=== PATIENT | female | born 1960 | race Caucasian/White ===

== ENCOUNTER → 2022-08-07 12:00 | Outpatient (CLI) | payer MEDICARE, SELFPAY | PROVIDERS: PCP Family Medicine; Visit Provider Podiatrist | DX: L57.0 Actinic keratosis (principal) | CPT/HCPCS: 87102; 87206; 87220; 88304; 88312 ==

== ENCOUNTER 2023-03-30 20:37 | Observation (INO) | payer MEDICARE, BC, SELFPAY ==
[2023-03-30 21:00] VITALS: PULSE 90
[2023-03-30 21:02] VITALS: BP 121/80; PULSE 96; O2SAT 90; BMI 36.8
--- NOTE | 2023-03-30 21:42 | EXP.HP ---
History of Present Illness *Admission Date: 03/30/23 *Reason for visit:: SOB and intermittent CP *History of present illness: This is a 62-year-old obese female with past medical history of COPD on 2 L of home, presented as a referral from [facility]. Patient is complaining of shortness of breath, with intermittent chest pain, more on the left and back side. Patient also being having cough. Initially went to the ER, and found to be hypoxic on 81% on room air,. Patient was tested positive for flu type A. During ER work-up found to have elevated troponin. Referral initiated to this facility for cardiac evaluation. Admitted for further work-up and treatment. [facility] Disclaimer: The information contained in this section may have been updated after the patient was seen, as this information can be updated by other users. Medical History Alcoholism delivery delivered Onychoincurvatum Surgical History H/O tubal ligation Family History Father Cancer Coronary artery disease Alcoholism Mother Coronary artery disease Heart attack Hypertension Hyperlipidemia Sister Hypertension Social History Smoking Status: Former smoker years smoked: 50 how long ago did patient quit smokin years quit status: has quit before alcohol intake: former substance use type: denies use current occupational status: disabled Travel in the last 8 weeks: None Review of Systems Review of Systems Review of systems:: pertinent systems reviewed and negative unless documented below Meds Home Medications and Allergies Home Medications Medication Instructions Recorded Confirmed Type albuterol sulfate 90 mcg/actuation 2 inh inhalation QIDP PRN 03/31/23 03/31/23 History aerosol inhaler Shortness Of Breath ipratropium 0.5 mg-albuterol 3 mg 3 ml inhalation QIDP PRN Shortness 03/31/23 03/31/23 History (2.5 mg base)/3 mL nebulization Of Breath soln ketoconazole 2 % topical cream 1 applic topical BID Infection 03/31/23 03/31/23 History New Prescriptions to Start Prescriptions: Allergies Allergy/AdvReac Type Severity Reaction Status Date / Time Penicillins Allergy Unknown Verified 02/12/23 10:18 Exam Data for Last 24 hours I & O for Last 24 hours: Intake & Output 03/27/23 03/28/23 03/29/23 03/30/23 23:59 23:59 23:59 23:59 Weight 97.182 kg Constitutional Constitutional: mild distress and cooperative *Routine HEENT Exam Head: Present normocephalic and atraumatic Eye: Present EOMI, PERRL and normal accommodation ENT: Present mucous membranes moist *Routine Neck Exam Neck: Present supple, full ROM and trachea midline *Routine Respiratory Exam Respiratory: Present decreased breath sounds, respiratory distress, wheezes and symmetric chest movement; Absent able to speak in complete sentences *Routine Cardiovascular Exam Cardiovascular: Present RRR, Normal S1 and Normal S2 *Routine Abdominal Exam Abdominal: Present soft and normoactive bowel sounds; Absent organomegaly *Routine Rectal Exam Rectal:: other *Routine Genitalia Exam Genitalia:: other *Routine Extremities Exam Extremities: Present full ROM, pulses intact and normal capillary refill *Routine Skin Exam Skin: Present intact, dry and warm *Routine Neurological Exam Neurological: Present alert, oriented X3, normal reflexes, moving all extremities, normal tone and normal speech Routine Psychiatric Exam Psychiatric: Present cooperative, good insight and good judgment H&P: Result Imaging and Cardiology EKG: Status: image reviewed by me and Preliminary report Assessment and Plan *Assessment and plan (1) Acute respiratory failure with hypoxia: Status: Acute Category: Medical Code(s): J96.01 - Acute re
[2023-03-30 22:00] VITALS: BP 138/92; PULSE 93
--- NOTE | 2023-03-30 22:08 | PC.NURSE ---
Patient arrived to floor by stretcher at 20:37.
[2023-03-30 22:36] LABS: MANUAL DIFFERENTIAL MANUAL DIFFERENTIAL (MANUAL DIFF)
[2023-03-30 22:49] LABS: Basophils # 0.1 K/mm3 (0-0.2); Basophils % 0.4 % (0.1-2.0); Eosinophils % 0.2 % (0.1-12.0); Hematocrit 48.6 % (37.0-47.0); Hemoglobin 14.8 g/dL (12.2-16.2); Lymphocytes # 0.7 K/mm3 (0.7-4.5); Lymphocytes % 5.9 % (10-50); Mean Corpuscular HGB Conc 30.5 g/dL (31.8-35.4); Mean Corpuscular Hemoglobin 26.8 pg (27.0-31.2); Mean Corpuscular Volume 87.7 fl (81-99); Mean Platelet Volume 8.4 fl (7.4-10.4); Monocytes # 0.1 K/mm3 (0.1-1.0); Monocytes % 1.1 % (1.7-9.3); Neutrophils # 10.9 K/mm3 (1.8-7.8); Neutrophils % 92.3 % (37.0-80.0); Platelet Count 413 K/mm3 (142-424); Red Blood Count 5.54 M/mm3 (4.20-5.40); Red Cell Distribution Width 13.5 % (11.5-17.5); White Blood Count 11.8 K/mm3 (4.8-10.8)
[2023-03-30 22:55] LABS: Lactic Acid 1.3 mmol/L (0.7-2.1)
[2023-03-30 22:56] LABS: Alanine Aminotransferase 20 U/L (12-78); Albumin Level 4.5 g/dl (3.5-5.0); Albumin/Globulin Ratio 1.3 (1.1-1.8); Alkaline Phosphatase 125 U/L (38-126); Anion Gap 15.1 mEq/L (5-15); Aspartate Amino Transferase 24 U/L (14-36); Bilirubin,Total 0.4 mg/dl (0.2-1.3); Blood Urea Nitrogen 10 mg/dl (7-17); Calcium 9.3 mg/dl (8.4-10.2); Carbon Dioxide 28 mmol/L (22.0-30.0); Chloride 100 mmol/L (98-107); Creatinine Clearance Estimated 87 mL/min (50-200); Estimated Glomerular Filt Rate 101 ml/min (>60); GFR (African American) 122 ML/MIN (>60); Globulin 3.4 g/dL (1.3-3.2); Glucose 134 mg/dl (74-100); Potassium 5.1 mmoL/L (3.5-5.1); Sodium 138 mmol/L (136-145); Total Protein,Serum 7.9 g/dl (6.3-8.2)
[2023-03-30 23:01] LABS: INR 1.04 (0.9-1.1); Prothrombin Time 11.2 seconds (10.1-12.5)
[2023-03-30 23:08] LABS: D-Dimer 0.96 ug/mL (0.0-0.5); Troponin I 0.13 ng/ml (0.00-0.034)
[2023-03-30 23:10] VITALS: PULSE 88
[2023-03-30 23:11] VITALS: PULSE 89
[2023-03-30 23:28] LABS: Hypochromasia 2+; Lymphocytes % 5 % (10-50); Neutrophils % 95 % (42-76); Platelet Estimate Normal; Total Cells Counted 100
[2023-03-31] VITALS (17 sets, daily range): BP systolic 107–135; BP diastolic 59–84; PULSE 64–115; RESP 8–33; TEMP 36.1–37; O2SAT 88–100; BMI 36.6
--- NOTE | 2023-03-31 01:38 | PC.NURSE ---
@ 0115 THIS PT REMAINS VERY ANXIOUS, TALKATIVE, AND UNABLE TO RELAX AND OXYGENATE PROPERLY. THIS RN NOTIFIED HEALTH INFORMATION SYSTEMS TECHNICIAN; SEE NEW ORDERS @ 0130 THIS RN IS AT BEDSIDE EDUCATING PATIENT ON NEW MEDICATION, ATIVAN 1MG, AND HOW IT WILL HELP WITH THIS PT'S ANXIETY AND WILL HELP HER SHORTNESS OF AIR. AT THIS TIME PT'S DAUGHTER KEPT INTERFERING WITH THIS RN'S AND PT'S CONVERSATION ON HER CONDITION AND ANXIETY AND THIS RN HAD TO ASK THE DAUGHTER TO PLEASE QUIT INTERFERING AND LOUDLY TALKING OVER THIS RN WHILE TRYING TO EDUCATE PATIENT ON HER CONDITION. DAUGHTER INFORMED THIS RN THAT PT HAS BEEN DIAGNOSED PARANOID SCHIZOPHRENIA; PT IS VERY CONCERNED AND ANXIOUS ABOUT BECOMING ADDICTED TO MEDICATIONS AND OXYGEN.
--- NOTE | 2023-03-31 02:21 | PC.NURSE ---
@ 0156 PT IS HAVING INCREASED SOA AND WORKING HARDER TO BREATHE; RT NOTIFIED AND WILL PLACE PT ON BIPAP AT THIS TIME FOR MORE OXYGEN SUPPORT
--- NOTE | 2023-03-31 06:31 | XR_ITS ---
PROCEDURE INFORMATION: Exam: XR Chest Exam date and time: 03/31/2023 8:26 AM Age: 62 years old Clinical indication: Shortness of breath; Additional info: Hypoxia TECHNIQUE: Imaging protocol: Radiologic exam of the chest. Views: 1 view. COMPARISON: No relevant prior studies available. FINDINGS: Lungs: Hypoinflation. Poorly characterized density overlying the right lung base, which can be better assessed with PA and lateral chest radiographs. Pleural spaces: No pleural effusion. Heart/Mediastinum: Epicardial fat, without cardiomegaly. Bones/joints: Degenerative change. IMPRESSION: Poorly characterized density overlying the right lung base, which can be better assessed with PA and lateral chest radiographs.
[2023-03-31 07:28] LABS: Basophils % 0.2 % (0.1-2.0); Eosinophils % 0.2 % (0.1-12.0); Hematocrit 47.6 % (37.0-47.0); Hemoglobin 14.3 g/dL (12.2-16.2); Lymphocytes % 10.9 % (10-50); Mean Corpuscular HGB Conc 30.1 g/dL (31.8-35.4); Mean Corpuscular Hemoglobin 26.6 pg (27.0-31.2); Mean Corpuscular Volume 88.2 fl (81-99); Mean Platelet Volume 8.1 fl (7.4-10.4); Monocytes # 0.3 K/mm3 (0.1-1.0); Neutrophils # 7.9 K/mm3 (1.8-7.8); Neutrophils % 85.6 % (37.0-80.0); Platelet Count 370 K/mm3 (142-424); Red Cell Distribution Width 13.4 % (11.5-17.5); White Blood Count 9.3 K/mm3 (4.8-10.8)
[2023-03-31 07:33] LABS: MANUAL DIFFERENTIAL MANUAL DIFFERENTIAL (MANUAL DIFF)
[2023-03-31 07:39] LABS: Alanine Aminotransferase 18 U/L (12-78); Albumin Level 4.2 g/dl (3.5-5.0); Albumin/Globulin Ratio 1.1 (1.1-1.8); Alkaline Phosphatase 98 U/L (38-126); Anion Gap 10.9 mEq/L (5-15); Aspartate Amino Transferase 23 U/L (14-36); Bilirubin,Total 0.3 mg/dl (0.2-1.3); Blood Urea Nitrogen 16 mg/dl (7-17); Calcium 8.8 mg/dl (8.4-10.2); Carbon Dioxide 30 mmol/L (22.0-30.0); Chloride 102 mmol/L (98-107); Chol/HDL Ratio 4.1 (1-3.5); Cholesterol 171 mg/dl (140-200); Creatinine Clearance Estimated 87 mL/min (50-200); Estimated Glomerular Filt Rate 101 ml/min (>60); GFR (African American) 122 ML/MIN (>60); Globulin 3.7 g/dL (1.3-3.2); Glucose 125 mg/dl (74-100); HDL Cholesterol 42 mg/dl (40-60); Magnesium 2.1 mg/dl (1.6-2.3); Potassium 4.9 mmoL/L (3.5-5.1); Sodium 138 mmol/L (136-145); Total Protein,Serum 7.9 g/dl (6.3-8.2); Triglycerides 61 mg/dl (30-150); VLDL Cholesterol 12 mg/dL (0-40)
[2023-03-31 07:49] LABS: Direct LDL Cholesterol 88.68 mg/dL (100-129)
[2023-03-31 07:57] LABS: ABG Base Excess -2.6 mmol/L (-2.4-2.3); ABG HCO3 22.4 mmhg (22.0-26.0); ABG Oxygen Saturation 97 % (90-100); ABG PCO2 38.3 mmhg (35.0-45.0); ABG PH 7.39 mmol/L (7.35-7.45); ABG PO2 89.2 mmhg (80-100); ABG TCO2 23.6 mmhg (23-27)
[2023-03-31 08:24] LABS: Lymphocytes % 13 % (10-50); Monocytes % 1 % (2-9); Neutrophils % 86 % (42-76); Platelet Estimate Normal; RBC Morphology Normal; Total Cells Counted 100
[2023-03-31 08:55] LABS: Bordetella Pertussis Not Detected (NotDetected); Chlamydophila Pneumoniae, PCR Not Detected (NotDetected); Coronavirus 19, PCR Not Detected (NotDetected); Coronavirus 229E Not Detected (NotDetected); Coronavirus NL63 Not Detected (NotDetected); Coronavirus OC43 Not Detected (NotDetected); Coronovirus HKU1,PCR Not Detected (NotDetected); Human Metapneumovirus Not Detected (NotDetected); Influenza A, PCR Not Detected (NotDetected); Influenza AH1, 2009 Not Detected (NotDetected); Influenza AH1, PCR Not Detected (NotDetected); Influenza AH3,PCR Not Detected (NotDetected); Influenza B, PCR Not Detected (NotDetected); Mycoplasma Pneumoniae, PCR Not Detected (NotDetected); Parainfluenza 1, PCR Not Detected (NotDetected); Parainfluenza 2, PCR Not Detected (NotDetected); Parainfluenza 3, PCR Not Detected (NotDetected); Parainfluenza 4, PCR Not Detected (NotDetected); Respiratory Syncytial Virus Not Detected (NotDetected)
[2023-03-31 08:57] LABS: Adenovirus,PCR Not Detected (NotDetected)
--- NOTE | 2023-03-31 10:57 | HMH.PHAINT1 ---
Pharmacy Intervention Comments: MEDICATION RECONCILIATION COMPLETE USING LIST FROM MOST RECENT PODIATRY OFFICE VISIT AND EXTERNAL PHARMACY FILL HISTORY.
[2023-03-31 11:08] LABS: Rhinovirus/Enterovirus Detected (NotDetected)
[2023-03-31 13:00] LABS: Coronavirus 19, PCR Not Detected (NotDetected); Influenza A, PCR Not Detected (NotDetected); Influenza B, PCR Not Detected (NotDetected)
[2023-03-31 13:06] LABS: Troponin I 0.08 ng/ml (0.00-0.034)
--- NOTE | 2023-03-31 17:53 | EXP.ACUTE.PN ---
Subjective *Date: 03/31/23 *Time: 17:53 Interval history: Patient states she feels a little bit better this morning. Tolerating 4 L nasal cannula oxygen. Denies any chest pain, nausea, vomiting, diarrhea. Repeat panel obtained this morning showing positive entero-/rhinovirus. Repeat rapid COVID/flu A and B PCR pending given result being different from outside hospital as result. Afebrile. Medical Exam Vital signs and Labs for Last 24 Hours: Vital Signs Temp Pulse Pulse Pulse Resp BP Pulse Ox 03/31/23 15:23 98.6 F 92 H 18 118/68 100 03/31/23 12:00 100 H 03/31/23 14:58 03/31/23 12:00 109 H 33 H 135/70 92 L 03/31/23 11:55 105 H 03/31/23 11:55 115 H 03/31/23 11:55 92 L 03/31/23 08:00 75 03/31/23 11:17 97.9 F 03/31/23 10:00 88 27 H 116/70 97 03/31/23 13:00 03/31/23 10:43 03/31/23 09:59 88 03/31/23 09:59 88 03/31/23 09:59 92 L 03/31/23 08:00 100 03/31/23 09:00 03/31/23 08:00 92 H 26 H 113/69 100 03/31/23 07:48 97.0 F L 03/31/23 07:00 03/31/23 06:00 67 107/77 L 96 03/31/23 04:00 80 116/84 98 03/31/23 02:00 86 111/59 L 88 L 03/31/23 00:00 88 111/75 91 L 03/30/23 22:00 93 H 138/92 H 03/30/23 21:02 96 H 121/80 90 L 03/31/23 05:00 03/31/23 07:10 64 03/31/23 07:10 67 03/31/23 07:10 03/31/23 07:10 96 03/31/23 04:00 03/31/23 04:00 80 03/31/23 00:00 90 03/30/23 21:00 90 03/31/23 03:00 03/31/23 04:00 97.7 F 03/31/23 02:24 03/31/23 01:00 03/30/23 23:00 03/30/23 20:36 03/31/23 00:00 97.5 F L 03/30/23 23:12 03/30/23 23:11 89 03/30/23 23:10 88 O2 Del Method O2 Flow Rate FiO2 03/31/23 15:23 Nasal Cannula 4 03/31/23 12:00 03/31/23 14:58 Nasal Cannula 03/31/23 12:00 Nasal Cannula 03/31/23 11:55 03/31/23 11:55 03/31/23 11:55 Nasal Cannula 4 03/31/23 08:00 03/31/23 11:17 03/31/23 10:00 Nasal Cannula 03/31/23 13:00 Nasal Cannula 03/31/23 10:43 Nasal Cannula 03/31/23 09:59 03/31/23 09:59 03/31/23 09:59 Nasal Cannula 4 03/31/23 08:00 BiPAP 03/31/23 09:00 BiPAP 03/31/23 08:00 BiPAP 03/31/23 07:48 03/31/23 07:00 BiPAP 03/31/23 06:00 03/31/23 04:00 03/31/23 02:00 03/31/23 00:00 03/30/23 22:00 03/30/23 21:02 BiPAP 03/31/23 05:00 BiPAP 03/31/23 07:10 03/31/23 07:10 03/31/23 07:10 50 03/31/23 07:10 BiPAP 50 03/31/23 04:00 BiPAP 03/31/23 04:00 03/31/23 00:00 03/30/23 21:00 03/31/23 03:00 BiPAP 03/31/23 04:00 03/31/23 02:24 50 03/31/23 01:00 Venturi Mask 03/30/23 23:00 Venturi Mask 03/30/23 20:36 Venturi Mask 50 03/31/23 00:00 03/30/23 23:12 Venturi Mask 15 50 03/30/23 23:11 03/30/23 23:10 Intake and Output 03/31/23 03/31/23 03/31/23 07:59 15:59 23:59 Intake Total 0 / 360 360 / 360 Output Total 500 / 500 0 / 500 0 / 500 Balance -500 / -140 360 / -140 0 / -140 Intake: Intake, Oral Amount 0 / 360 360 / 360 Output: Output, Urine Amount 500 / 500 0 / 500 0 / 500 Other: Number of Unmeasured Voids 0 0 0 Weight 97.182 kg Patient Weight 03/31/23 23:59 Weight 97.182 kg Laboratory Results - last 24 hr 03/30/23 22:10: WBC 11.8 H, RBC 5.54 H, Hgb 14.8, Hct 48.6 H, MCV 87.7, MCH 26.8 L, MCHC 30.5 L, RDW 13.5, Plt Count 413, MPV 8.4, Neut % (Auto) 92.3 H, Lymph % (Auto) 5.9 L, Pike % (Auto) 1.1 L, Eos % (Auto) 0.2, Baso % (Auto) 0.4, Neut # (Auto) 10.9 H, Lymph # (Auto) 0.7, Pike # (Auto) 0.1, Eos # (Auto) 0.0, Baso # (Auto) 0.1, Total Counted 100, Neutrophils % (Manual) 95 H, Lymphocytes % (Manual) 5 L, Platelet Estimate Normal, Hypochromasia 2+, PT 11.2, INR 1.04, D-Dimer 0.96 H, Sodium 13
--- NOTE | 2023-03-31 21:35 | ECG_ITS ---
APPROVED REPORT Exam: Resting ECG HR:60 bpm ECG Measurements Heart Rate 60 AXES ID 161 P 72 QRSd 89 QRS 97 QT 391 T 81 QTc 391 Conclusion SINUS RHYTHM WITH OCCASIONAL SUPRAVENTRICULAR PREMATURE COMPLEXES BORDERLINE RIGHT AXIS DEVIATION [QRS AXIS > 90] MINIMAL ST DEPRESSION [0.025+ mV ST DEPRESSION] BORDERLINE ECG UNCONFIRMED REPORT Electronically signed by : Dakota Mckenzie MD 04/02/2023 20:06:02
[2023-04-01] VITALS (14 sets, daily range): BP systolic 104–123; BP diastolic 55–80; PULSE 70–101; RESP 18–22; TEMP 36.5–37.6; O2SAT 93–98; BMI 37.2
--- NOTE | 2023-04-01 05:46 | PC.NURSE ---
no events through the night, pt remains on 3l/nc, nsr on monitor, audible wheezing at times
--- NOTE | 2023-04-01 06:00 | ECG_ITS ---
APPROVED REPORT Exam: Resting ECG HR:77 bpm ECG Measurements Heart Rate 77 AXES ID 145 P 52 QRSd 83 QRS 19 QT 390 T 41 QTc 422 Conclusion SINUS RHYTHM LOW QRS VOLTAGE IN PRECORDIAL LEADS [QRS DEFLECTION < 1.0 mV IN CHEST LEADS] BORDERLINE ECG UNCONFIRMED REPORT Electronically signed by : Dakota Mckenzie MD 04/02/2023 20:05:12
[2023-04-01 06:30] LABS: Basophils # 0.1 K/mm3 (0-0.2); Basophils % 0.5 % (0.1-2.0); Eosinophils # 0.2 K/mm3 (0.0-0.4); Eosinophils % 1.3 % (0.1-12.0); Hematocrit 45.5 % (37.0-47.0); Hemoglobin 13.8 g/dL (12.2-16.2); Lymphocytes # 3.2 K/mm3 (0.7-4.5); Lymphocytes % 25.2 % (10-50); Mean Corpuscular HGB Conc 30.4 g/dL (31.8-35.4); Mean Corpuscular Hemoglobin 26.8 pg (27.0-31.2); Mean Corpuscular Volume 88.3 fl (81-99); Mean Platelet Volume 8.3 fl (7.4-10.4); Monocytes # 0.8 K/mm3 (0.1-1.0); Monocytes % 6.5 % (1.7-9.3); Neutrophils # 8.4 K/mm3 (1.8-7.8); Neutrophils % 66.5 % (37.0-80.0); Platelet Count 402 K/mm3 (142-424); Red Blood Count 5.16 M/mm3 (4.20-5.40); Red Cell Distribution Width 13.5 % (11.5-17.5); White Blood Count 12.7 K/mm3 (4.8-10.8)
[2023-04-01 06:44] LABS: Alanine Aminotransferase 18 U/L (12-78); Albumin/Globulin Ratio 1.1 (1.1-1.8); Alkaline Phosphatase 91 U/L (38-126); Anion Gap 11.3 mEq/L (5-15); Aspartate Amino Transferase 25 U/L (14-36); Bilirubin,Total 0.2 mg/dl (0.2-1.3); Blood Urea Nitrogen 26 mg/dl (7-17); Calcium 8.5 mg/dl (8.4-10.2); Carbon Dioxide 31 mmol/L (22.0-30.0); Chloride 101 mmol/L (98-107); Creatinine Clearance Estimated 89 mL/min (50-200); Estimated Glomerular Filt Rate 84 ml/min (>60); GFR (African American) 102 ML/MIN (>60); Globulin 3.5 g/dL (1.3-3.2); Glucose 100 mg/dl (74-100); Potassium 4.3 mmoL/L (3.5-5.1); Sodium 139 mmol/L (136-145); Total Protein,Serum 7.5 g/dl (6.3-8.2)
--- NOTE | 2023-04-01 09:00 | CA_ITS ---
APPROVED REPORT EXAM: Comprehensive 2D, Doppler, and color-flow Echocardiogram Cooling Pan Tender: Aissatou Mercado CRT Ht: 5 ft 4 in Wt: 218lbs BSA: 2.03 BP: 118/69 mmHg Indications: Chest Pain, Shortness of Breath, NSTEMI, FLU A, HOME O2 2D Dimensions LVOT 1.79 cm (M/F) 1.5-2.5 LA Volume 25.30 mL LA Volume Index 12.20 mL/m2 (M/F) 16-34 M-Mode Dimensions RVDd 3.11 cm (0.9-2.6) LA Diam 2.94 cm (1.9-4.0) LVDd 2.86 cm (3.5-5.7) Ao Diam 3.91 cm (2.0-3.7) LVDs 1.79 cm (3.5-5.7) IVSd 1.82 cm (0.6-1.1) PWd 0.75 cm (0.6-1.1) EF (Teich) 69.10% FS 37.40% EDV (Teich) 31.10 mL TAPSE 2.94 (<1.7) ESV (Teich) 9.60 mL LV Diastology E Decel Time 150.00 (160-240 msec) E/A Ratio 0.83 MED E' 6.00 (< 7 cm/sec) MED A' 10.90 cm/s E'/MED E' Ratio 14.53 (>14) LAT E' 12.80 (<10 cm/sec) LAT A' 11.20 cm/s E/LAT E' Ratio 6.81 (>14) Aortic Valve AO Peak GR. 8.80 mmHg Mitral Valve MV A Velocity 105.00 (40-130 cm/s) E/A Ratio 0.83 MV Decel. Time 150.00 (160-240 ms) Pulmonary Valve PV Peak Velocity 125.00 (50-150 cm/s) Tricuspid Valve TR P. Velocity 259.00 cm/s RAP Estimate 10.00 mmHg RVSP 36.80 mmHg Left Ventricle The left ventricle is normal size. The left ventricular systolic function is normal. The left ventricular ejection fraction is within the normal range. There is normal left ventricular wall thickness. There is normal LV segmental wall motion. The left ventricular diastolic function is normal. LVEF is 65%. Right Ventricle The right ventricle is normal size. Atria The left atrium size is normal. The right atrium size is normal. There is no Doppler evidence of interatrial shunt. Aortic Valve The aortic valve is mildly thickened. There is no aortic valvular stenosis. No aortic regurgitation is present. Mitral Valve The mitral valve is normal in structure. No evidence of mitral valve stenosis. There is no mitral valve regurgitation noted. Tricuspid Valve Tricuspid valve leaflets are thin and pliable. Trace tricuspid regurgitation. RVSP is 15 mmHg + RA pressure. Pulmonic Valve The pulmonary valve is normal in structure. Trace pulmonic regurgitation. Great Vessels The aortic root is normal in size. The ascending aorta is normal in size. The IVC is not well-visualized. Pericardium There is no pericardial effusion. Other Information Study Quality: Fair Conclusion Normal biventricular systolic function. No significant valvular stenosis or regurgitation. Electronically signed by : Lurdes Mead MD 04/02/2023 17:40:18
--- NOTE | 2023-04-01 10:02 | EXP.PULM.CON ---
History of Present Illness History of present illness: Ms. Neely is a 62-year-old female greater than [id number] smoking the last 1 to 2 years ago with reported diagnosis of COPD using albuterol on as-needed basis at home presented with worsening respiratory distress and pulmonary was called for further evaluation and management [facility] Disclaimer: The information contained in this section may have been updated after the patient was seen, as this information can be updated by other users. Medical History (Updated 04/01/23 @ 11:46 by Abdirizak Lopez MD) Alcoholism delivery delivered COPD exacerbation Onychoincurvatum Pneumonia Surgical History H/O tubal ligation Family History Father Cancer Coronary artery disease Alcoholism Mother Coronary artery disease Heart attack Hypertension Hyperlipidemia Sister Hypertension Social History Smoking Status: Former smoker years smoked: 50 how long ago did patient quit smokin years quit status: has quit before alcohol intake: former substance use type: denies use current occupational status: disabled Travel in the last 8 weeks: None Review of Systems Constitutional Constitutional: Reports anorexia, Reports body ache(s) and Reports fatigue Eyes Eyes: Denies eye discharge, Denies dry eyes, Denies irritation and Denies itchy eyes ENT Ears, Nose, Mouth, and Throat: Denies epistaxis, Denies facial pain, Denies lip swelling and Denies throat swelling *Cardiovascular Cardiovascular: Reports dyspnea and Reports dyspnea on exertion *Respiratory Respiratory: Reports chest congestion, Reports cough, Reports dyspnea, Reports dyspnea on exertion, Denies excessive phlegm production, Denies hemoptysis, Denies pain on inspiration, Denies pain with cough and Reports wheezing *Gastrointestinal Gastrointestinal: Denies abdominal pain, Denies belching and Denies cramping *Musculoskeletal Musculoskeletal: Reports back pain, Reports myalgias and Reports other (No small joint swelling or Pain) Psychiatric Psychiatric: Denies homicidal ideation and Denies suicidal ideation Endocrine Endocrine: Reports fatigue and Denies heat intolerance Hematologic/Lymphatic Hematologic/Lymphatic: Denies easy bleeding and Denies lymphadenopathy Allergic/Immunologic Allergic/Immunologic: Denies itchy eyes, Denies lip swelling, Denies throat swelling and Reports wheezing Pulmonology Exam Inpatient Vital signs and Labs for Last 24 Hours: Temp Pulse Resp BP Pulse Ox O2 Del Method O2 Flow Rate 99.7 F H 77 22 118/69 96 Room Air 2 04/01/23 07:51 04/01/23 09:05 04/01/23 07:51 04/01/23 07:51 04/01/23 09:05 04/01/23 09:05 04/01/23 07:51 FiO2 32 03/31/23 19:00 Laboratory Results - last 24 hr 03/31/23 07:13: Troponin I 0.08 H 03/31/23 08:55: Chlamy pneumoniae PCR Not detected, Adenovirus (PCR) Not detected, B. pertussis DNA (PCR) Not detected, Coronavirus OC43 (PCR) Not detected, Coronavirus HKU1 (PCR) Not detected, Coronavirus 229E (PCR) Not detected, SARS-CoV-2 (PCR) Not detected, Coronavirus NL63 (PCR) Not detected, Human Metapneumovir PCR Not detected, Influenza A (H1) PCR Not detected, Influ A (H1N1/09) PCR Not detected, Influenza A (H3) PCR Not detected, Influenza Type A (PCR) Not detected, Influenza Type B (PCR) Not detected, M. pneumoniae (PCR) Not detected, Parainfluenza 1 (PCR) Not detected, Parainfluenza 2 (PCR) Not detected, Parainfluenza 3 (PCR) Not detected, Parainfluenza 4 (PCR) Not detected, RSV (PCR) Not detected, Entero/Rhino (PCR) Detected A 03/31/23 13:00: SARS-CoV-2 (PCR) Not detected, Influenza A Untype (PCR) Not detected, Influenza Type B (PCR) Not detected 04/01/23 06:00: WBC 12.7 H D, RBC 5.16, Hgb 13.8, Hct 45.5, MCV 88.3, MCH 26.8 L, MCHC 30.4 L, RDW 13.5, Plt Count 402, MPV 8.3, Neut % (Auto) 66.5, Lymph %
--- NOTE | 2023-04-01 11:45 | CT_ITS ---
APPROVED REPORT Internet Developer: CLINICAL INDICATION Chest Pain TECHNIQUE Image Acquisition: A 128 slice MDCT scanner (Evolitaa View) was used for data acquisition. A noncontrast coronary calcium scan was performed. Bolus tracking in the ascending aorta with a threshold of 180 HU was performed. Immediately afterwards, ECG synchronized cardiac CT was then performed from the cardiac base to apex using retrospective gating with ECG tube current modulation. A total of 85 mL of Isovue 370 mg/mL contrast medium was administered at 5 mL/sec followed by a saline flush using a biphasic injection protocol. A tube voltage of 120 KVp was used. The patient received the following medications prior to the cardiac CT. 50 mg of oral metoprolol 10 mg of intravenous metoprolol. No sublingual nitroglycerin was administered (patient declined). The average heart rate at the time of acquisition was 85 bpm and regular. Image Reconstruction Transaxial images were reconstructed at 0.67 mm slide thickness. Data was reviewed interactively on an advanced workstation capable of 2 and 3-dimensional displays in all conventional reconstruction formats, including multiplanar reformations, maximum intensity projections, curved multiplanar reformations, and volume rendered reconstructions. When applicable, selected routine images describing the relevant coronary anatomy and pathology were saved and sent to PACS. Complications None Technical Quality Overall image quality was suboptimal due to inadequate dilation of the coronary arteries, elevated HR (HR > 70 bpm), and significant motion. Coronary artery opacification was inadequate. Total DLP (Dose-Length Product) is 1170.7 mGy-cm. The reported value represents the total of one or more individual components during the CT acquisition of this date and at this time, and as such, the same value may appear in more than one CT report depending on the interpreting/reporting physicians. COMPARISON None FINDINGS CT Coronary Calcium Scoring LMA (Left Main Artery) = 0 LAD (Left Anterior Descending) = 59 LCX (Left Coronary Circumflex) = 0 RCA (Right Coronary Artery) = 13 Total Calcium Score = 72 using the AJ-130 method. The interpretation of the calcium heart score is based on the following continuum*: 0 = no calcified plaque detected (risk of coronary artery disease is very low ??? less than 5%) 1-10 = calcium detected in extremely minimal levels (risk of coronary diseases is still low ??? less than 10%) 11-100 = mild levels of plaque detected with certainty (minimal narrowing of heart arteries is likely) 101-300 = moderate levels of plaque detected (relatively high risk of a heart attack within 3-5 years) 300-400 = extensive levels of plaque detected (very high risk of heart attack, high levels of vascular disease are present) *The calcium heart score quantifies the burden of coronary calcification/plaque in the coronary arteries. The calcium heart score is not able to evaluate the presence or burden of non-calcified (i.e. soft) plaque. According to The Multi-Ethnic Study of Atherosclerosis (BREWER) Coronary Artery Calcium (CAC) risk, the estimated probability of a non-zero calcium score for an individual of your ethnicity and age is 45%. The observed calcium score of 72 is at 79 percentile for subjects of the same age, sex, and race/ethnicity who are free of inical cardiovascular disease and treated diabetes. There is identifiable calcification in the aortic root, but no calcification was noted in the aortic valve, mitral annulus or mitral valve, pericardium, or myocardium. Coronary CT Angiography Coronaries have normal origin and proximal course. The coronary arterial system is right dominant. Note: [place]
--- NOTE | 2023-04-01 11:57 | EXP.DC.SUM ---
General Admission date:: 03/30/23 Discharge date: 04/01/23 HPI HPI HPI: This is a 62-year-old obese female with past medical history of COPD on 2 L of home, presented as a referral from [facility]. Patient is complaining of shortness of breath, with intermittent chest pain, more on the left and back side. Patient also being having cough. Initially went to the ER, and found to be hypoxic on 81% on room air,. Patient was tested positive for flu type A. During ER work-up found to have elevated troponin. Referral initiated to this facility for cardiac evaluation. Admitted for further work-up and treatment. Hospital Course Hospital Course Hospital Course: 62 year-old obese female with past medical history of COPD on 2 L of home, presented as a referral from [facility]. Patient is complaining of shortness of breath, with intermittent chest pain, more on the left and back side. Patient also being having cough. Previous hospital records reviewed. CTA was obtained. Low concern for PE. EKG is negative for ST changes. Patient is stable Pain is related with coughing and deep breath. Imaging showing bilateral opacities, consistent with atypical pneumonia, more likely secondary to influenza A (positive at outside hospital). Initial ABG was showing hypoxia, was placed BiPAP. upon arrival patient patient is stable, denies sharp chest pain. Patient transition to nasal cannula this morning, tolerating 4 L. During admission, able to wean to room air during the day with some oxygen at night per her baseline usage. Stable for discharge home. Cardiology evaluated, recommend further outpatient work-up. Problems addressed as follows: -Acute respiratory failure with hypoxia, secondary to atypical pneumonia -Enteroviral infection -COPD, present on admission Presented with concern for COPD exacerbation and possible pneumonia, repeat testing at our facility was negative for pneumonia but positive for rhino/enterovirus. Initially on supplemental oxygen, weaned to room air during the day. Continue home oxygen at night. Plan to continue antibiotics for 5-day course for COPD exacerbation. Pulmonology was consulted, recommended discontinuing Tamiflu as patient was negative for flu. Continue treatment for COPD exacerbation and viral respiratory infection. Stable for discharge home. -elevated troponin: -NSTEMI Detectable troponin on admission at outside hospital as well as at our facility. Troponin trended down with improvement in her respiratory status/infection. Cardiology consulted, recommend outpatient follow-up for further evaluation of possible ischemic disease and left heart cath. CCTA was performed showing need for further evaluation. Patient was started on Lipitor 20 mg nightly and metoprolol succinate 50 mg daily in addition to her home medications. Echo obtained with normal EF. Discharged home with close follow-up with cardiology for further management. Spent 40 minutes in discharge counseling, consultation with subspecialists, documentation, and direct care with patient. Exam Data for Last 24 hours Vital signs and Labs for Last 24 Hours: Temp Pulse Resp BP Pulse Ox O2 Del Method O2 Flow Rate 99.3 F 82 22 123/80 97 Room Air 2 04/01/23 11:22 04/01/23 11:22 04/01/23 11:22 04/01/23 11:22 04/01/23 11:22 04/01/23 11:22 04/01/23 07:51 FiO2 32 03/31/23 19:00 Laboratory Results - last 24 hr 03/31/23 07:13: Troponin I 0.08 H 03/31/23 13:00: SARS-CoV-2 (PCR) Not detected, Influenza A Untype (PCR) Not detected, Influenza Type B (PCR) Not detected 04/01/23 06:00: WBC 12.7 H D, RBC 5.16, Hgb 13.8, Hct 45.5, MCV 88.3, MCH 26.8 L, MCHC 30.4 L, RDW 13.5, Plt Count 402, MPV 8.3, Neut % (Auto) 66.5, Lymph % (Auto) 25.2, [place] % (Auto) 6.5, Eos % (Auto) 1.3, Baso % (Auto) 0.5, Neut # (Auto) 8.4 H, Lymph # (Auto) 3.2, Hopkins # (Auto) 0.8, Eos # (Auto) 0.2, Baso # (Auto) 0.1, Sodium 139, Potassium 4.3, Chloride
--- NOTE | 2023-04-01 13:22 | EXP.CARD.CON ---
History of Present Illness History of Present Illness Consult date: 04/01/23 Requesting physician: Luc Gonzalez Consult reason: chest pain and shortness of breath Chief complaint: CP, SOA History of present illness: This is a 62-year-old white female who presented to the emergency department at [facility] with complaints of chest pain and shortness of breath. She has a known history of COPD on home oxygen. The patient states that she has been having chest pain and shortness of breath a few days prior to coming into the hospital. She states that this felt like a heavy pressure sensation in the center of her chest. It did not radiate. It was associated with profound shortness of breath. She states that her shortness of breath was also associated with cough. She denied having any fever or chills. She states that her symptoms just continue to worsen and that is why she went to the emergency department at [facility] she was found to be hypoxemic with oxygen saturation of 81% on room air. She tested positive for flu type a and had an elevated high-sensitivity troponin so the patient was transferred here to [facility] for further cardiac evaluation. The patient was negative for flu here at our facility. Her troponin was elevated at 0. 1 3 and 0.08. The patient was positive for rhinovirus and suspected to have rhinovirus pneumonia. She states that her chest pain and pressure have resolved. She states that her shortness of breath has improved but she is still somewhat short of breath with exertion. Her cough is improved as well. She denies any lower extremity edema. She denies any fever, chills, nausea, vomiting, diarrhea, PND or orthopnea. [facility] Disclaimer: The information contained in this section may have been updated after the patient was seen, as this information can be updated by other users. Medical History (Updated 04/01/23 @ 13:30 by Yolanda Boss APRN) Alcoholism delivery delivered COPD exacerbation COPD mixed type Elevated troponin Non-STEMI (non-ST elevated myocardial infarction) Onychoincurvatum Pneumonia Surgical History H/O tubal ligation Family History Father Cancer Coronary artery disease Alcoholism Mother Coronary artery disease Heart attack Hypertension Hyperlipidemia Sister Hypertension Social History (Reviewed 02/12/23 @ 10:04 by Nathalie Yuan Smoking Status: Former smoker years smoked: 50 how long ago did patient quit smokin years quit status: has quit before alcohol intake: former substance use type: denies use current occupational status: disabled Travel in the last 8 weeks: None Review of Systems Review of Systems Review of systems:: pertinent systems reviewed and negative unless documented below Constitutional Constitutional: Reports system reviewed and no additional complaints, except as documented and Reports lethargy Eyes Eyes: Reports system reviewed and no additional complaints, except as documented ENT Ears, Nose, Mouth, and Throat: Reports system reviewed and no additional complaints, except as documented *Cardiovascular Cardiovascular: Reports system reviewed and no additional complaints, except as documented, Reports chest pain, Reports chest pain at rest, Reports chest pain with activity, Reports dyspnea, Reports dyspnea on exertion and Denies leg edema *Respiratory Respiratory: Reports system reviewed and no additional complaints, except as documented, Reports cough, Reports dyspnea, Reports dyspnea on exertion, Reports pain on inspiration and Reports pain with cough *Gastrointestinal Gastrointestinal: Reports system reviewed and no additional complaints, except as documented *Genitourinary Genitourinary: Reports system reviewed and no additional complaints, except as documented *Musculoskeletal Musculoskeletal:
== END 2023-04-01 18:16 | disposition home or self-care (01) ==
PROVIDERS: Internal Medicine Pulmonary Disease; Nurse Practitioner Family; Admitting Provider Internal Medicine Adolescent Medicine; PCP Family Medicine; Visit Provider Internal Medicine Adolescent Medicine
DX: J44.1 Chronic obstructive pulmonary disease with (acute) exacerbation (principal); I21.4 Non-ST elevation (NSTEMI) myocardial infarction; J18.9 Pneumonia, unspecified organism; J44.0 Chronic obstructive pulmonary disease with (acute) lower respiratory infection; Z79.899 Other long term (current) drug therapy; R07.89 Other chest pain; J96.01 Acute respiratory failure with hypoxia; Z99.81 Dependence on supplemental oxygen
CPT/HCPCS: 36415; 71045; 75574; 80053; 80061; 82803; 83605; 83735; 84100; 84484; 85007; 85014; 85018; 85025; 85048; 85049; 85378; 85610; 87070; 87205; 87581; 87632; 87636; 87798; 93005; 93306; 94640; 94660; 94760; G0378; J1956; Q9967

== ENCOUNTER 2023-04-16 07:29 | Day surgery (SDC) | payer MEDICARE, SELFPAY ==
[2023-04-16] VITALS (13 sets, daily range): BP systolic 103–158; BP diastolic 53–101; PULSE 64–76; RESP 17–18; TEMP 37; O2SAT 93–100; BMI 37.4
--- NOTE | 2023-04-16 07:15 | IR_ITS ---
APPROVED REPORT Patient Location: Outpatient Supervisor Power Reactor: JENNIFER Lord RT (R) PROCEDURES Left heart catheterization Left ventriculogram Selective coronary angiogram INDICATION Known coronary artery disease, Angina pectoris, Abnormal CCTA with LAD disease Informed consent was obtained prior to the procedure. COMPLICATIONS NONE Estimated Blood Loss: LESS THAN 10 ML TECHNIQUE One percent lidocaine used to anesthetize the right anterior aspect of the wrist. The right radial artery was accessed via the Seldinger technique. A 6 Swedish sheath was placed in the right radial artery. 2.5 mg of Verapamil, 800 mcg of nitroglycerin, 1mg Lidocaine and 5000 U Heparin were given through the arterial sheath. The papa catheter was also used to perform left heart catheterization, left ventriculogram and selective coronary angiogram. At the end of the procedure the sheath was removed good hemostasis was achieved using Traclet band, patient was transferred to the postop holding area in stable condition. ANGIOGRAPHIC RESULTS The left main artery Normal The left anterior descending artery Is proximally normal. There is no identifiable atherosclerotic disease however there is an anatomical kink along a tortuous bend during systole of approximately 40 to 50% The circumflex artery Nondominant normal The right coronary artery Dominant normal The BERMUDEZ ventriculogram reveals Normal 65% The left ventricular end-diastolic pressure 10 to 15 mmHg IMPRESSION No angiographic evidence of atherosclerotic heart disease Anatomical kink along the mid LAD which is clinically insignificant at this time Normal ejection fraction Normal left ventricular end-diastolic pressure PLAN 1. Medical management Electronically signed by : Angel Bernard MD 04/16/2023 10:37:41
[2023-04-16 08:17] LABS: Basophils % 0.4 % (0.1-2.0); Eosinophils # 0.5 K/mm3 (0.0-0.4); Eosinophils % 6.7 % (0.1-12.0); Hematocrit 42.6 % (37.0-47.0); Hemoglobin 13.5 g/dL (12.2-16.2); Lymphocytes # 2.1 K/mm3 (0.7-4.5); Lymphocytes % 26.2 % (10-50); Mean Corpuscular HGB Conc 31.8 g/dL (31.8-35.4); Mean Corpuscular Hemoglobin 28.7 pg (27.0-31.2); Mean Corpuscular Volume 90.3 fl (81-99); Mean Platelet Volume 7.6 fl (7.4-10.4); Monocytes # 0.4 K/mm3 (0.1-1.0); Monocytes % 4.8 % (1.7-9.3); Neutrophils % 61.8 % (37.0-80.0); Platelet Count 388 K/mm3 (142-424); Red Blood Count 4.72 M/mm3 (4.20-5.40); Red Cell Distribution Width 13.2 % (11.5-17.5); White Blood Count 8.1 K/mm3 (4.8-10.8)
[2023-04-16 08:29] LABS: Chloride 103 mmol/L (98-107); Potassium 5.3 mmoL/L (3.5-5.1); Sodium 139 mmol/L (136-145)
[2023-04-16 08:32] LABS: Anion Gap 14.3 mEq/L (5-15); Blood Urea Nitrogen 11 mg/dl (7-17); Carbon Dioxide 27 mmol/L (22.0-30.0); Creatinine Clearance Estimated 89 mL/min (50-200); Estimated Glomerular Filt Rate 124 ml/min (>60); GFR (African American) 150 ML/MIN (>60)
[2023-04-16 08:33] LABS: Calcium 8.4 mg/dl (8.4-10.2); Glucose 89 mg/dl (74-100)
== END 2023-04-16 13:47 | disposition home or self-care (01) ==
PROVIDERS: PCP Family Medicine; Visit Provider Internal Medicine
DX: R06.00 Dyspnea, unspecified (principal); R07.9 Chest pain, unspecified; R77.8 Other specified abnormalities of plasma proteins; R93.1 Abnormal findings on diagnostic imaging of heart and coronary circulation; R94.31 Abnormal electrocardiogram [ECG] [EKG]; I25.118 Atherosclerotic heart disease of native coronary artery with other forms of angina pectoris; Z79.899 Other long term (current) drug therapy; J44.9 Chronic obstructive pulmonary disease, unspecified; I25.2 Old myocardial infarction; Z87.891 Personal history of nicotine dependence
CPT/HCPCS: 80048; 85025; 93458; C1725; C1769; J1644; Q9967

== ENCOUNTER → 2023-05-03 07:39 | Outpatient (CLI) | payer MEDICARE, SELFPAY ==
[2023-05-03 09:10] VITALS: PULSE 67; PULSE 73
== END ==
LOC: RT 07:40
PROVIDERS: PCP Internal Medicine; Visit Provider Internal Medicine Pulmonary Disease
DX: J44.9 Chronic obstructive pulmonary disease, unspecified (principal)
CPT/HCPCS: 94060; 94618; 94640; 94727; 94729

== ENCOUNTER 2023-08-20 15:29 | Outpatient (CLI) | payer MEDICARE, MEDICAID, SELFPAY ==
--- NOTE | 2023-08-20 15:30 | CT_ITS ---
FINAL REPORT TECHNIQUE: Thin section axial images were obtained from the lung apices to the upper abdomen by computed tomography. Reformatted images were obtained and reviewed. This study was performed with techniques to keep radiation doses al low as reasonably achievable (ALARA). Individualized dose reduction techniques using automated exposure control or adjustment of mA and/or kV according to the patient's size were employed. CLINICAL HISTORY: lung cancer screening former smoker of 40 yrs. 1 pack per day. COMPARISON: Prior CTA of the chest dated 03/30/2023 FINDINGS: CHEST CT LOW DOSE 63-year-old female history of 40 pack years smoking, has quit, although exact date of termination of smoking not listed. CTDI vol (mGy): 2.9 DLP (mGy-cm): 100.29 There is no axillary adenopathy. There is no mediastinal or hilar mass or adenopathy. Mild coronary arterial calcifications are present. There is no pericardial or pleural effusion. There is mild emphysema and mild pulmonary scarring. Lung window images demonstrate a 2 mm nodule adjacent to the right major fissure, stable since the prior CT, likely an intrafissural node. This is best seen on image #23. No other mass or nodule is identified.. Limited images of the upper abdomen are remarkable for low densities in the liver, well-circumscribed, presumed hepatic cysts.. IMPRESSION: Lung-RADS category 1. Recommend 12 month follow up low dose chest CT. Reviewed, Interpreted and Dictated by Ervin Caputo III, MD Transcribed by Honey Smith Authenticated and [facility]
== END 2023-08-20 23:59 ==
LOC: RAD 15:30
PROVIDERS: PCP Family Medicine; Visit Provider Internal Medicine Pulmonary Disease
DX: F17.210 Nicotine dependence, cigarettes, uncomplicated (principal)
CPT/HCPCS: 71271

== ENCOUNTER 2024-05-04 13:35 | Outpatient (CLI) | payer MEDICARE, MEDICAID, SELFPAY ==
[2024-05-04 14:07] LABS: Basophils # 0.1 K/mm3 (0-0.2); Basophils % 1.1 % (0.1-2.0); Eosinophils # 0.5 K/mm3 (0.0-0.4); Eosinophils % 4.1 % (0.1-12.0); Hematocrit 42.8 % (37.0-47.0); Hemoglobin 13.5 g/dL (12.2-16.2); Lymphocytes # 2.4 K/mm3 (0.7-4.5); Lymphocytes % 20.1 % (10-50); Mean Corpuscular HGB Conc 31.6 g/dL (31.8-35.4); Mean Corpuscular Hemoglobin 27.7 pg (27.0-31.2); Mean Corpuscular Volume 87.7 fl (81-99); Mean Platelet Volume 7.7 fl (7.4-10.4); Monocytes # 0.7 K/mm3 (0.1-1.0); Monocytes % 5.6 % (1.7-9.3); Neutrophils # 8.4 K/mm3 (1.8-7.8); Neutrophils % 69.1 % (37.0-80.0); Platelet Count 380 K/mm3 (142-424); Red Blood Count 4.87 M/mm3 (4.20-5.40); Red Cell Distribution Width 13.4 % (11.5-17.5); White Blood Count 12.1 K/mm3 (4.8-10.8)
[2024-05-04 14:51] LABS: Alanine Aminotransferase 19 U/L (12-78); Albumin Level 4.1 g/dl (3.5-5.0); Alkaline Phosphatase 144 U/L (38-126); Anion Gap 18.4 mEq/L (5-15); Aspartate Amino Transferase 22 U/L (14-36); Bilirubin,Direct 0.3 mg/dl (0.0-0.4); Bilirubin,Indirect 0.3 mg/dL (0.0-0.9); Bilirubin,Total 0.6 mg/dl (0.2-1.3); Bilirubin,Unconjugated 0.3 mg/dL (0.0-1.1); Blood Urea Nitrogen 11 mg/dl (7-17); Calcium 8.6 mg/dl (8.4-10.2); Carbon Dioxide 25 mmol/L (22.0-30.0); Chloride 100 mmol/L (98-107); Chol/HDL Ratio 2.5 (1-3.5); Cholesterol 111 mg/dl (140-200); Estimated Glomerular Filt Rate 100 ml/min (>60); GFR (African American) 121 ML/MIN (>60); Glucose 93 mg/dl (74-100); HDL Cholesterol 44 mg/dl (40-60); Potassium 4.4 mmoL/L (3.5-5.1); Sodium 139 mmol/L (136-145); Total Protein,Serum 6.7 g/dl (6.3-8.2); Triglycerides 106 mg/dl (30-150); VLDL Cholesterol 21 mg/dL (0-40)
[2024-05-04 15:06] LABS: Free T4 (Free Thyroxine) 1.11 ng/dl (0.78-2.19)
[2024-05-04 15:18] LABS: Direct LDL Cholesterol 51.86 mg/dL (100-129)
[2024-05-04 15:21] LABS: Thyroid Stimulating Hormone 2.31 uIU/mL (0.465-4.68)
== END 2024-05-04 23:59 | disposition home or self-care (01) ==
LOC: LAB 13:35
PROVIDERS: PCP Family Medicine; Visit Provider Nurse Practitioner
DX: I25.10 Atherosclerotic heart disease of native coronary artery without angina pectoris (principal); E78.5 Hyperlipidemia, unspecified; I10 Essential (primary) hypertension
CPT/HCPCS: 36415; 80048; 80061; 80076; 84439; 84443; 85025

== ENCOUNTER 2024-08-31 09:39 | Outpatient (CLI) | payer MEDICARE, MEDICAID, SELFPAY ==
--- NOTE | 2024-08-31 09:40 | CT_ITS ---
FINAL REPORT TECHNIQUE: Axial CT images of the chest were obtained without contrast. Low-dose protocol was utilized. This study was performed with techniques to keep radiation doses as low as reasonably achievable (ALARA). Individualized dose reduction techniques using automated exposure control or adjustment of mA and/or kV according to the patient's size were employed. CLINICAL HISTORY: lung cancer screening FORMER SMOKER QUIT 4 YEARS AGO 1PPD X49 YEARS COMPARISON: 08/20/2023 FINDINGS: CT CHEST WITHOUT, LOW DOSE SCREENING CT Di Vol: 2.90 mGy DLP: 114.64 mGy*cm There is no axillary, mediastinal, or hilar adenopathy. The heart size is normal. There is no pleural or pericardial effusion. The lung windows show a stable 2 mm nodule along the right major fissure on image 36 which is most compatible with intrafissural lymph node. No suspicious pulmonary nodules identified. Limited images of the upper abdomen demonstrate no acute findings. IMPRESSION: No suspicious nodules. LR Category 1: 12 month follow-up low-dose chest CT is recommended per Fleischner criteria. Reviewed, Interpreted and Dictated by Gilberto Ruano MD Transcribed by Virginia Danielle Authenticated and [facility]
== END 2024-08-31 23:59 | disposition home or self-care (01) ==
LOC: RAD 09:40
PROVIDERS: PCP Family Medicine; Visit Provider Internal Medicine Pulmonary Disease
DX: F17.210 Nicotine dependence, cigarettes, uncomplicated (principal)
CPT/HCPCS: 71271

== ENCOUNTER 2025-03-12 09:35 | Outpatient (CLI) | payer MEDICARE, MEDICAID, SELFPAY | END 2025-03-12 23:59 | disposition home or self-care (01) | LOC: RT 09:36 | PROVIDERS: PCP Family Medicine; Visit Provider Internal Medicine Pulmonary Disease | DX: R94.2 Abnormal results of pulmonary function studies (principal); R06.09 Other forms of dyspnea; R06.02 Shortness of breath | CPT/HCPCS: 94010; 94618 ==

== ENCOUNTER 2025-03-31 11:05 | Outpatient (CLI) | payer MEDICARE, MEDICAID, SELFPAY ==
--- NOTE | 2025-03-31 11:30 | US_ITS ---
FINAL REPORT CLINICAL HISTORY: Evaluation for Disturbances of skin sensation, previous smoker, HTN, hyperlipidemia, bilateral claudication, previous angioplasty. FINDINGS: ANKLE-BRACHIAL PRESSURE INDICES Pressure indices are as follows: RIGHT LOWER EXTREMITY: Ankle-brachial pressure index: 0.98 Comments: Normal LEFT LOWER EXTREMITY: Ankle-brachial pressure index: 1.06 Comments: Normal IMPRESSION: No evidence of significant obstructive peripheral vascular disease of the lower extremities Reviewed, Interpreted and Dictated by Sury Gloria MD Transcribed by Virginia Danielle Authenticated and [facility]
== END 2025-03-31 23:59 | disposition home or self-care (01) ==
LOC: RT 11:06
PROVIDERS: PCP Family Medicine; Visit Provider Nurse Practitioner
DX: I73.9 Peripheral vascular disease, unspecified (principal); I10 Essential (primary) hypertension; E78.5 Hyperlipidemia, unspecified; R20.8 Other disturbances of skin sensation; R09.89 Other specified symptoms and signs involving the circulatory and respiratory systems; Z87.891 Personal history of nicotine dependence; Z98.890 Other specified postprocedural states
CPT/HCPCS: 93923

== ENCOUNTER 2025-04-29 11:33 | Outpatient (CLI) | payer MEDICARE, MEDICAID, SELFPAY ==
[2025-04-29 12:02] LABS: Hematocrit 41.3 % (37.0-47.0); Hemoglobin 12.7 g/dL (12.2-16.2); Immature Granulocytes % 0.4 %; Mean Corpuscular HGB Conc 30.8 g/dL (31.8-35.4); Mean Corpuscular Hemoglobin 26.0 pg (27.0-31.2); Mean Corpuscular Volume 84.5 fl (81-99); Nucleated Red Blood Cells % 0 %; Platelet Count 381 K/mm3 (142-424); Red Blood Count 4.89 M/mm3 (4.20-5.40); Red Cell Distribution Width-SD 43.6 fL; White Blood Count 9.6 K/mm3 (4.8-10.8)
[2025-04-29 12:33] LABS: Albumin Level 3.8 g/dl (3.5-5.0)
[2025-04-29 12:34] LABS: Chloride 100 mmol/L (98-107); Potassium 4.6 mmoL/L (3.5-5.1); Sodium 138 mmol/L (136-145)
[2025-04-29 12:36] LABS: Alanine Aminotransferase 15 U/L (12-78); Anion Gap 12.6 mEq/L (5-15); Aspartate Amino Transferase 19 U/L (14-36); Bilirubin,Unconjugated 0.5 mg/dL (0.0-1.1); Blood Urea Nitrogen 12 mg/dl (7-17); Carbon Dioxide 30 mmol/L (22.0-30.0); Creatinine,Serum 0.60 mg/dl (0.52-1.04); Estimated Glomerular Filt Rate 100 ml/min (>60); GFR (African American) 121 ML/MIN (>60); Total Protein,Serum 6.9 g/dl (6.3-8.2)
[2025-04-29 12:37] LABS: Alkaline Phosphatase 156 U/L (38-126); Bilirubin,Direct 0.0 mg/dl (0.0-0.4); Bilirubin,Indirect 0.5 mg/dL (0.0-0.9); Bilirubin,Total 0.5 mg/dl (0.2-1.3); Calcium 8.7 mg/dl (8.4-10.2); Cholesterol 109 mg/dl (140-200); Glucose 87 mg/dl (74-100); HDL Cholesterol 44 mg/dl (40-60); Magnesium 2.0 mg/dl (1.6-2.3); Triglycerides 84 mg/dl (30-150)
[2025-04-29 12:55] LABS: Free T4 (Free Thyroxine) 1.11 ng/dl (0.78-2.19)
[2025-04-29 13:08] LABS: Thyroid Stimulating Hormone 2.35 uIU/mL (0.465-4.68)
== END 2025-04-29 23:59 | disposition home or self-care (01) ==
LOC: LAB 11:34
PROVIDERS: PCP Family Medicine; Visit Provider Physician Assistant
DX: I25.10 Atherosclerotic heart disease of native coronary artery without angina pectoris (principal); I10 Essential (primary) hypertension; E78.5 Hyperlipidemia, unspecified
CPT/HCPCS: 36415; 80048; 80061; 80076; 83735; 84439; 84443; 85025